=== PATIENT | female | born 1990 | race Caucasian/White ===

== ENCOUNTER 2017-01-14 13:00 | Inpatient (IN) | payer OTHER ==
[~2017-01-14] VITALS: Ht 170.2 cm; Wt 75.3 kg
[2017-01-14] MEDS ORDERED: OXYTOCIN/NORMAL SALINE 1,000 ML IV SCH ×2 (13:51→23:53)
[2017-01-14] MEDS ORDERED: LR 1,000 ML IV ONE (13:51)
[2017-01-14] MEDS ORDERED: LR 1,000 ML IV SCH (13:51)
[2017-01-14] MEDS ORDERED: TERBUTALINE SULFATE 1 MG/ML VIAL SUBCUT ONE (14:00)
[2017-01-14] MEDS ORDERED: NALBUPHINE HCL 10 MG/ML AMP IVP PRN (14:00)
[2017-01-14 14:48] LABS: BASOPHILS % (AUTO) 0.2 % (0.0-2.0); EOSINOPHILS # (AUTO) 0.1 K/uL (0.0-0.4); EOSINOPHILS % (AUTO) 0.6 % (0.0-4.0); HEMATOCRIT 36.1 % (36-48); HEMOGLOBIN 11.9 g/dL (12.0-16.0); LYMPHOCYTES # (AUTO) 1.6 K/uL (1.0-5.5); MEAN CORPUSCULAR HEMOGLOBIN 28 pg (27-31); MEAN CORPUSCULAR HGB CONC 33 % (32-36); MEAN CORPUSCULAR VOLUME 85 fL (79.0-98.0); MONOCYTES # (AUTO) 0.5 K/uL (0.0-1.0); MONOCYTES % (AUTO) 5.1 % (1.7-9.3); NEUTROPHILS # (AUTO) 6.6 K/uL (1.8-7.7); NEUTROPHILS % (AUTO) 76.1 % (40.0-70.0); PLATELET COUNT (AUTO) 279 K/uL (130-430); RED BLOOD CELL COUNT(AUTO) 4.24 MIL/uL (4.2-6.2); RED CELL DISTRIBUTION WIDTH 12.9 % (9.0-15.0); WHITE BLOOD COUNT (AUTO) 8.8 K/uL (4.8-10.8)
[2017-01-14] MEDS ORDERED: FENT2mCg/mL-ROPIVA0.2%/NS EPID 150 ML EP ONE (17:15)
[2017-01-14] MEDS ORDERED: FENT2mCg/mL-ROPIVA0.2%/NS EPID 150 ML EP SCH (17:45)
[2017-01-14] MEDS ORDERED: TEMAZEPAM 15 MG CAPSULE PO PRN (21:00)
[2017-01-14] MEDS ORDERED: IBUPROFEN 600 MG TABLET ONE (22:40)
[2017-01-14] MEDS ORDERED: OXYTOCIN/NORMAL SALINE 1,000 ML IV ONE (23:53)
[2017-01-15] MEDS ORDERED: HYDROcodone/ACETAMIN 5-325 MG TAB (NORCO/ VICODIN) PO PRN
[2017-01-15] MEDS ORDERED: HYDROCORTISONE 0.5%, 28.35 GM TOPICAL CREAM TP PRN
[2017-01-15] MEDS ORDERED: DERMOPLAST SPRAY TP PRN
[2017-01-15] MEDS ORDERED: GLYCERIN/WITCH HAZEL (TUCKS PADS) TP PRN
[2017-01-15] MEDS ORDERED: METHYLERGONOVINE MALEATE 0.2 MG TABLET PO PRN
[2017-01-15] MEDS ORDERED: ANUSOL 1 EA SUPP.RECT (PREPARATION H) RC PRN
[2017-01-15] MEDS ORDERED: DOCUSATE SODIUM 100 MG CAPSULE PO PRN
[2017-01-15] MEDS ORDERED: SENNOSIDES/DOCUSATE SODIUM 1 TAB TABLET(SENOKOT-S) PO PRN
[2017-01-15] MEDS ORDERED: LANOLIN 7 GM OINT. TP PRN
[2017-01-15] MEDS: IBUPROFEN 600 MG TABLET PO SCH ×4 (05:39→23:27)
[2017-01-15 07:11] LABS: HEMOGLOBIN 11.9 g/dL (12.0-16.0)
[2017-01-15] MEDS: HYDROcodone/ACETAMIN 5-325 MG TAB (NORCO/ VICODIN) PO PRN ×2 (17:32→21:25)
[2017-01-16] MEDS: IBUPROFEN 600 MG TABLET PO SCH (05:10)
== END 2017-01-16 08:50 | disposition home or self-care (01) | DRG 775 ==
LOC: SPU 13:00 → OBSVTOIN 13:50
PROVIDERS: ADMIT Obstetrics & Gynecology; ATTEND Obstetrics & Gynecology
PROC: 10E0XZZ Delivery of Products of Conception, External Approach (ICD-10-PCS; principal; 2017-01-14)
PROC: 0KQM0ZZ Repair Perineum Muscle, Open Approach (ICD-10-PCS; 2017-01-14)
PROC: 0W8NXZZ Division of Female Perineum, External Approach (ICD-10-PCS; 2017-01-14)
PROC: 3E0S3CZ (ICD-10-PCS; 2017-01-14)
PROC: 00HU33Z Insertion of Infusion Device into Spinal Canal, Percutaneous Approach (ICD-10-PCS; 2017-01-14)
DX: O70.1 Second degree perineal laceration during delivery (principal); Z37.0 Single live birth; Z3A.38 38 weeks gestation of pregnancy; Z91.040 Latex allergy status; Z91.018 Allergy to other foods
CPT/HCPCS: 36415; 81002-TC; 85018-TC; 85025; 86592; 86886; 86900; 86901; G0378; J2590; J3010; J7120